=== PATIENT | female | born 1960 | race Caucasian/White ===

== ENCOUNTER 2017-12-31 07:50 | Outpatient (CLI) | payer OTHER ==
[~2017-12-31] VITALS: Wt 97.3 kg
[2017-12-31 08:45] VITALS: BP 106/60; PULSE 61; TEMP 97.3
[2017-12-31 08:49] LABS: HEMATOCRIT 42.1 % (37.0-47.0); HEMOGLOBIN 13.8 g/dl (12.5-16.0); MEAN CELL VOLUME 88 fl (80.0-100.0); MEAN CORPUSCULAR HEMOGLOBIN 29 pg (27.0-31.0); MEAN CORPUSCULAR HGB CONC 33 g/dl (33.0-37.0); MEAN PLATELET VOLUME 9.8 fl (7.4-10.4); PLATELET COUNT 232 K/mm3 (130-400); RED BLOOD COUNT 4.76 M/mm3 (4.10-5.30); REDCELL DISTRIBUTION WIDTH-CV 13.9 % (11.5-14.5)
[2017-12-31] MEDS ORDERED: ASPIRIN 81M81 MG/TA2 PO (09:00)
[2017-12-31] MEDS ORDERED: JARDIANCE10 PO (09:00)
[2017-12-31] MEDS ORDERED: FLONASE NASAL S16 GM NS (09:01)
[2017-12-31] MEDS ORDERED: SINGULAIR 110 MG/TAB PO (09:02)
[2017-12-31] MEDS ORDERED: ZESTRIL 10MG10 MG PO (09:02)
[2017-12-31] MEDS ORDERED: ZYRTEC 10MG10 MG PO (09:05)
[2017-12-31] MEDS ORDERED: PRILOSEC 20MG20 MG PO (09:08)
[2017-12-31] MEDS ORDERED: OMEGA-3 FISH1000 MG PO (09:08)
[2017-12-31] MEDS ORDERED: B-121000 MCG PO (09:09)
[2017-12-31] MEDS ORDERED: CALCIUM 600MG+D1 TAB PO (09:10)
[2017-12-31] MEDS ORDERED: CRESTOR40 MG PO (09:11)
[2017-12-31] MEDS ORDERED: ZANTAC 150150 MG PO (09:11)
[2017-12-31] MEDS ORDERED: JANUVIA 100MG100 MG PO (09:12)
[2017-12-31] MEDS ORDERED: LANTUS100 U/ML SQ (09:13)
[2017-12-31] MEDS ORDERED: NOVOLOG 100U100 U/M1 SQ (09:14)
[2017-12-31] MEDS ORDERED: LOPRESSOR 225 MG/TAB PO (09:15)
[2017-12-31] MEDS ORDERED: CRANBERRY450 MG PO (09:16)
[2017-12-31] MEDS ORDERED: [UNRECOGNIZED DRUG - OTHER] PO (09:16)
[2017-12-31] MEDS ORDERED: MULTI VITAMINS1 TAB PO (09:17)
[2017-12-31] MEDS ORDERED: FIBER0.52 GM PO (09:17)
[2017-12-31] MEDS ORDERED: GLUCOSAMINE & C1 TAB PO (09:18)
[2017-12-31 10:53] VITALS: BP 120/63; PULSE 56
== END 2017-12-31 11:28 | disposition home or self-care (01) ==
LOC: COL.CAR 07:50
PROVIDERS: Internal Medicine Interventional Cardiology
DX: R00.2 Palpitations (principal); I83.813 Varicose veins of bilateral lower extremities with pain; I87.2 Venous insufficiency (chronic) (peripheral); Z79.82 Long term (current) use of aspirin; Z79.4 Long term (current) use of insulin

== ENCOUNTER → 2021-04-02 | Outpatient (CLI) | payer OTHER ==
[~2021-04-02] MED LIST: ASPIRIN 81M81 MG/TA2 PO; B-121000 MCG PO; CALCIUM 600MG+D1 TAB PO; CRANBERRY450 MG PO; CRESTOR40 MG PO; FIBER0.52 GM PO; FLONASE NASAL S16 GM NS; GLUCOSAMINE & C1 TAB PO; JANUVIA 100MG100 MG PO; JARDIANCE10 PO; LANTUS100 U/ML SQ; LOPRESSOR 225 MG/TAB PO; MULTI VITAMINS1 TAB PO; NOVOLOG 100U100 U/M1 SQ; OMEGA-3 FISH1000 MG PO; PRILOSEC 20MG20 MG PO; SINGULAIR 110 MG/TAB PO; ZANTAC 150150 MG PO; ZESTRIL 10MG10 MG PO; ZYRTEC 10MG10 MG PO; [UNRECOGNIZED DRUG - OTHER] PO
== END ==
LOC: COL.RAD 07:44
DX: G31.89 Other specified degenerative diseases of nervous system (principal); R93.0 Abnormal findings on diagnostic imaging of skull and head, not elsewhere classified
CPT/HCPCS: A9585

== ENCOUNTER 2021-10-02 11:56 | Day surgery (SDC) | payer OTHER ==
[~2021-10-02] VITALS: Ht 157.5 cm; Wt 97.2 kg
[~2021-10-02 11:56] MED LIST changes: -CALCIUM 600MG+D1 TAB PO; +CALCIUM CITRATE1 TA1 PO; +COENZYME Q-10200 M1 PO; -CRANBERRY450 MG PO; +CRANBERRY500 M3 PO; -CRESTOR40 MG PO; -FIBER0.52 GM PO; -FLONASE NASAL S16 GM NS; -GLUCOSAMINE & C1 TAB PO; +GLUCOSAMINE/CHO1 CA4 PO; -JARDIANCE10 PO; +JARDIANCE25 PO; +LIPITOR20 MG PO; -PRILOSEC 20MG20 MG PO; +QUALITY CHOIC0.52 GM PO; -ZESTRIL 10MG10 MG PO; +ZESTRIL 20MG TA20 MG PO; -[UNRECOGNIZED DRUG - OTHER] PO
[2021-10-02] MEDS ORDERED: NATURE'S BLEND100 M2 PO (13:23)
[2021-10-02] MEDS ORDERED: LANTUS100 U/ML SQ (13:28)
[2021-10-02] MEDS ORDERED: CINNAMON/CHROMIUM PO (13:50)
[2021-10-02] MEDS ORDERED: PRILOSEC 20MG20 MG PO (13:50)
[2021-10-02] MEDS ORDERED: CURCUMIN95% PO (13:53)
[2021-10-02] MEDS ORDERED: ALPHA LIPOIC A200 M2 PO (13:53)
[2021-10-02] MEDS ORDERED: MAGNESIUM250 M1 PO (13:54)
[2021-10-02] MEDS ORDERED: FENUGREEK PO (13:54)
[2021-10-02] MEDS ORDERED: [UNRECOGNIZED DRUG - OTHER] PO (13:55)
[2021-10-02] MEDS ORDERED: [UNRECOGNIZED DRUG - OTHER] PO (13:55)
[2021-10-02] MEDS ORDERED: POTASSIUM GLUC595 M1 PO (13:56)
[2021-10-02] MEDS ORDERED: BIOTIN5000 MCG PO (13:56)
[2021-10-02] MEDS ORDERED: BITTER MELON PO (13:57)
[2021-10-02] MEDS ORDERED: GARLIC100 MG PO (13:57)
[2021-10-02] MEDS ORDERED: VALERIAN ROOT100 MG PO (13:58)
[2021-10-02] MEDS ORDERED: MULLEIN PO (13:59)
[2021-10-02] MEDS ORDERED: FLONASE NASAL S16 GM NS (14:00)
[2021-10-02 14:01] VITALS: BP 147/85; PULSE 71; TEMP 98.3
[2021-10-02] MEDS ORDERED: NASONEX SPRAY17 GM NS (14:01)
[2021-10-02 14:34] VITALS: BP 125/63; PULSE 75
--- NOTE | 2021-10-02 14:45 | NUR ---
Discharge instructions given to pt.Pt verbalizes uderstanding.Pt escorted out via ambulatory.
== END 2021-10-02 16:39 ==
LOC: COL.CAR 11:56
DX: I10 Essential (primary) hypertension (principal); R60.0 Localized edema; Z95.818 Presence of other cardiac implants and grafts; E11.9 Type 2 diabetes mellitus without complications; E78.5 Hyperlipidemia, unspecified; Z79.899 Other long term (current) drug therapy